=== PATIENT | male | born 1985 | race Caucasian/White ===

== ENCOUNTER 2016-08-29 22:35 | Emergency (ER) | payer OTHER ==
[~2016-08-29] VITALS: Ht 182.9 cm; Wt 110.0 kg
[~2016-08-29 22:35] MED LIST: ANAPROX DS550 M1 PO
[2016-08-29] MEDS ORDERED: AUGMENTIN875 MG PO (23:40)
[2016-08-29 23:59] VITALS: BP 133/70
== END 2016-08-30 00:01 | disposition home or self-care (01) ==
LOC: EME 22:35
DX: S31.825A Open bite of left buttock, initial encounter (principal); S51.852A Open bite of left forearm, initial encounter; W54.0XXA Bitten by dog, initial encounter; Z23 Encounter for immunization
CPT/HCPCS: 99281; 99284

== ENCOUNTER 2016-09-07 11:45 | Emergency (ER) | payer OTHER ==
[~2016-09-07] VITALS: Ht 182.9 cm; Wt 100.0 kg
[~2016-09-07 11:45] MED LIST changes: +AUGMENTIN875 MG PO
[2016-09-07 13:56] VITALS: BP 143/74
== END 2016-09-07 14:07 | disposition home or self-care (01) ==
LOC: EME 11:45
DX: S72.052D Unspecified fracture of head of left femur, subsequent encounter for closed fracture with routine healing (principal); Z48.02 Encounter for removal of sutures
CPT/HCPCS: 99281; 99284